=== PATIENT | female | born 1945 | race Caucasian/White ===

== ENCOUNTER → 2016-11-20 | Outpatient (CLI) | payer OTHER, MEDICAID | LOC: BMCIMAGING 12:06 | PROVIDERS: ATTEND Internal Medicine | DX: M51.34 Other intervertebral disc degeneration, thoracic region (principal); M50.323 Other cervical disc degeneration at C6-C7 level ==

== ENCOUNTER 2017-05-04 03:13 | Emergency (ER) | payer MEDICAID, OTHER ==
[2017-05-04 03:21] VITALS: BP 145/65; PULSE 78; RESP 18; TEMP 98.2; O2SAT 96
--- NOTE | 2017-05-04 03:42 | EDPHY ---
H & P Stated Complaint: made alvina,had chloride smell, ate at 1999, now dizzy/ bloat/nausea Time Seen by Provider: 05/04/17 03:30 HPI/ROS: Chief Complaint: Possible food poisoning HPI: 72-year-old woman made her on some worker out this week. She placed a CABG in [place] for 3 days. She opened this evening and thought it might have a small choroid smell but she did eat it. This is about 8 hours ago. About an hour to after eating she developed some nausea. Has not had any vomiting. Also had some mild lightheadedness. Symptoms are not worsening. She has not had any vomiting or diarrhea. No fevers or chills. Has had no abdominal pain. No numbness or weakness. She is worried that she may have contracted some sort of food poisoning in his here for evaluation. ROS: 10 point Review of Systems is negative except as noted in the HPI. PMH: Hypothyroidism Medications: Synthroid Allergies: No known drug allergies Social History: No smoking, no alcohol, no recreational drug use Family History: non-contributory Physical Exam: Gen: Awake, Alert, No Distress HEENT: Nose: no rhinorrhea Eyes: PERRLA, EOMI Mouth: Moist mucosa Neck: Supple, no JVD Chest: nontender, lungs clear to auscultation Heart: S1, S2 normal, no murmur Abd: Soft, non-tender, no guarding Back: no CVA tenderness, no midline tenderness Ext: no edema, non-tender Skin: no rash Neuro: CN II-XII intact, Sensation grossly intact, Strength 5/5 in bilateral upper and lower extremities - Personal History Current Tetanus/Diphtheria Vaccine: Unsure - Medical/Surgical History Hx Asthma: No Hx Chronic Respiratory Disease: No Hx Diabetes: No Hx Cardiac Disease: No Hx Renal Disease: No Hx Cirrhosis: No Hx Alcoholism: No Hx HIV/AIDS: No Hx Splenectomy or Spleen Trauma: No Other PMH: hypothyroid, hysterectomy - Social History Smoking Status: Never smoked Constitutional: Initial Vital Signs Temperature (C) 36.8 C 05/04/17 03:16 Heart Rate 78 05/04/17 03:16 Respiratory Rate 18 05/04/17 03:16 Blood Pressure 145/65 H 05/04/17 03:16 O2 Sat (%) 96 05/04/17 03:16 O2 Delivery Mode Room Air Allergies/Adverse Reactions: No Known Allergies Allergy (Unverified 05/04/17 03:15) Home Medications: Medication Instructions Recorded Herbals/Supplements -Info Only 1 ea PO DAILY 11/17/15 Naturethroid 81.25 mg PO DAILY 11/17/15 Medical Decision Making ED Course/Re-evaluation: 72-year-old presenting with some nausea and some dizziness after eating some abnormal smelling some workup that she made. She has a benign exam here. She has not had any vomiting or diarrhea. There is no numbness tingling or paresthesias. No other findings that are particularly concerning at this time. She has been given Zofran ODT is feeling improved. She has been reassured. She will follow up with primary care physician in 2-3 days for any concerns. If symptoms do worsen she will return to the emergency department for further evaluation. Departure - Departure Disposition: Home, Routine, Self-Care Clinical Impression: Nausea Condition: Good Instructions: Acute Nausea and Vomiting (ED) Additional Instructions: Return to the emergency depart for increasing nausea vomiting, abdominal pain, fevers, chills, numbness, weakness, or any other concerns. Follow up with primary care physician in 2-3 days if symptoms are not improving. Referrals: Abdullahi Castillo MD [Primary Care Provider] - As per Instructions
[2017-05-04] MEDS ORDERED: ONDANSETRON DISINTEGRATING 4 MG TAB PO ONE (03:47)
== END 2017-05-04 04:19 | disposition home or self-care (01) ==
DX: R11.0 Nausea (principal)

== ENCOUNTER → 2017-10-20 | Outpatient (CLI) | payer OTHER, MEDICAID | LOC: FIMAGING 13:53 | PROVIDERS: ATTEND Psychiatry & Neurology Neurology | DX: R41.3 Other amnesia (principal) ==

== ENCOUNTER → 2017-10-29 | Outpatient (CLI) | payer OTHER, MEDICAID | LOC: BMCIMAGING 13:00 | PROVIDERS: ATTEND Internal Medicine Rheumatology | DX: M25.551 Pain in right hip (principal) ==

== ENCOUNTER → 2017-11-23 | Outpatient (CLI) | payer OTHER, MEDICAID | LOC: BMCIMAGING 08:38 | PROVIDERS: ATTEND Physician Assistant | DX: M25.562 Pain in left knee (principal) ==

== ENCOUNTER → 2017-11-25 | Outpatient (CLI) | payer OTHER, MEDICAID | LOC: FIMAGING 15:19 | PROVIDERS: ATTEND Physician Assistant | DX: S83.242A Other tear of medial meniscus, current injury, left knee, initial encounter (principal); M25.462 Effusion, left knee; M94.29 Chondromalacia, multiple sites ==

== ENCOUNTER 2019-01-28 18:55 | Emergency (ER) | payer OTHER, MEDICAID ==
--- NOTE | 2019-01-28 19:39 | EDPHY ---
General Time Seen by Provider: 01/28/19 19:08 Narrative: CLINICAL IMPRESSION: Thyroglossal duct cyst ASSESSMENT/PLAN: 73-year-old female presents to the emergency department with atraumatic anterior throat pain and tightness over the last 2 days associated with allergic rhinitis. On exam, patient has no erythema, induration, swelling or clinical signs to suggest Prasanna's angina, epiglottitis, tracheitis, exudative tonsillitis, or branchial cleft cyst. CT neck confirms thyroglossal duct cyst. No obvious mass, base of tongue soft. Patient is tolerating secretions well, has no stridor or wheezing, respiratory distress or hypoxia. Given that patient has had increased pain she was started on antibiotics and referred to ENT for follow-up and possible surgical discussion. Warning signs return to ED sooner discussed in discharge papers. DIFFERENTIAL DX: Differential includes but not limited to Prasanna's angina, thyroglossal duct cyst, branchial cleft cyst, submental cellulitis, thyroiditis, pharyngitis, tracheitis, epiglottitis ED PROCEDURES: See lab and/or imaging results below ED COURSE: 8:50 p.m.: CT scan results discussed with Dr. Schultz, patient has a 20 mm thyroglossal duct cyst. No evidence of abscess. CHIEF COMPLAINT: Throat pain HPI: 73-year-old female with reported past medical history of chronic fatigue syndrome presents to the emergency department with several days of atraumatic anterior throat pain. Patient states this does not feel like a sore throat. She believes it is due to chronic allergic rhinitis and postnasal drip from allergies. She has had this in the past and it went away but states the pain today is lasting longer. She states it is affecting her ability to swallow and that it is painful to swallow but she is able to tolerate her secretions. She reports that her voice feels hoarse. She is not struggling to breathe. She has not noticed any obvious mass or swelling to the area. No recent dental work. No reported fever or chills. No trauma to the neck. She reports pain with flexing the neck forward. She has no pain inferior area over the thyroid, no shortness of breath or cough. She has never been told that she has a thyroglossal duct cyst or branchial cleft cyst. PAST MEDICAL HISTORY: Chronic fatigue syndrome See triage summary and nurse notes for addition applicable history Pertinent Past Surgical History: None reported Family History: Noncontributory Social History: Nonsmoker REVIEW OF SYSTEMS: A full 10 point review of systems was negative except for those mentioned in HPI. PHYSICAL EXAM: General Appearance: Alert, oriented, appropriate, cooperative, NAD, well hydrated, non-toxic appearing, tolerating secretions, hypertensive, I do not appreciate significant hoarseness to her voice, no hypoxia. HEENT: TMs are clear bilaterally no perforation or FB, no injection, no evidence of serous or mucopurulent otitis. Oropharynx clear is no erythema or exudates, no tonsillar hypertrophy or asymmetry. Dentition without abnormality. Floor of mouth soft without pain. No evidence of sialoadenitis. No obvious intraoral injury or ulceration. Base of tongue without palpable mass. No tenderness over the thyroid region. Neck: Supple, tender to palpation submental region extending to cricoid cartilage with no obvious induration fluctuance or cellulitis. No tenderness to palpation of the thyroid. No obvious anterior cervical lymphadenopathy. No palpable cyst or mass. no lymphadenopathy, no midline pain, FROM, no meningismus. Respiratory: There are no retractions, lungs are clear to auscultation. Cardiac: Regular rate and rhythm, no murmurs or gallops. Skin: Warm, dry, no rashes, no nodules on palpation. MEDICAL DECISION MAKING: Patient was seen independently. Secondary supervising physician at time of evaluation was: Dr. Schulz. Diagnosis: Thyroglossal duct cyst. New, requires workup Summary: See Assessment and Plan for summary of ED visit Clinical lab tests: ordered / reviewed. Independent visualization of images, tracing, or specimens: Yes. Discussed patient with another provider: Radiology Patient Progress: Stable for discharge. - Diagnostics Imaging Results: Imaging Impressions Neck CT 01/28/19 19:40 Impression: Thyroglossal duct cyst, measuring 10 x 10 x 20 mm, posterior to the hyoid cartilage and extending inferiorly to the level of the superior thyroid cartilage. Findings and recommendations discussed with Emergency Department Physician Business Solution Analyst, Walter Jacobson PA-C, at 2050 hours, on January 28, 2019. Final report concurs with initial preliminary interpretation. - History Smoking Status: Never smoked - Objective Vital Signs: Initial Vital Signs Temperature (C) 36.5 C 01/28/19 19:01 Heart Rate 72 01/28/19 19:01 Respiratory Rate 14 01/28/19 19:01 Blood Pressure 165/79 H 01/28/19 19:01 O2 Sat (%) 98 01/28/19 19:01 O2 Delivery Mode Room Air Allergies/Adverse Reactions: No Known Allergies Allergy (Unverified 05/04/17 03:15) Home Medications: Medication Instructions Recorded Herbals/Supplements -Info Only 1 ea PO DAILY 11/17/15 Naturethroid 81.25 mg PO DAILY 11/17/15 Amoxicillin/Clavulanate Pot 875 mg PO BID #20 tab 01/28/19 [Augmentin 875 mg tab] Laboratory Results: 01/28/19 19:50 POC Hgb 14.6 gm/dL gm/dL (12.6-16.3) POC Hct 43 % % (38-47) POC Sodium 143 mEq/L mEq/L (135-145) POC Potassium 3.6 mEq/L mEq/L (3.3-5.0) POC Chloride 110 mEq/L mEq/L (97-110) POC Total CO2 21 mEq/L L mEq/L (22-31) POC BUN 17 mg/dL mg/dL (7-23) POC Creatinine 0.8 mg/dL mg/dL (0.6-1.0) POC Glucose 91 mg/dL mg/dL (70-100) Medications Given: Discontinued Medications Amoxicillin/Clavulanate Potassium (Augmentin 875mg) 875 mg PO EDNOW ONE PRN Reason: Protocol Stop: 01/28/19 21:21 Last Admin: 01/28/19 21:28 Dose: 875 mg Point of Care Test Results: Chemistry 01/28/19 19:50 POC Sodium 143 mEq/L mEq/L (135-145) POC Potassium 3.6 mEq/L mEq/L (3.3-5.0) POC Chloride 110 mEq/L mEq/L (97-110) POC Total CO2 21 mEq/L L mEq/L (22-31) POC BUN 17 mg/dL mg/dL (7-23) POC Creatinine 0.8 mg/dL mg/dL (0.6-1.0) POC Glucose 91 mg/dL mg/dL (70-100) ISTAT H&H 01/28/19 19:50 POC Hgb 14.6 gm/dL gm/dL (12.6-16.3) POC Hct 43 % % (38-47) Departure - Departure Disposition: Home, Routine, Self-Care Clinical Impression: Thyroglossal duct cyst Condition: Good Instructions: Neck Pain (ED) Additional Instructions: DISCHARGE INSTRUCTIONS FROM YOUR DOCTOR Thank you for visiting our emergency department today. You were treated by a physician assistant news director today and your case was reviewed with our ED Attending physician. Please keep in mind that discharge from the emergency department does not mean that there is nothing wrong - it simply means that we have not identified an emergency condition that requires further evaluation or treatment in the hospital. You should always plan to follow up with primary care for re- evaluation of your condition in the next 2-3 days. If you have been referred to a specialist, please call as soon as possible (today or tomorrow) to schedule your follow up appointment at the appropriate time. YOU HAVE A THYROGLOSSAL DUCT CYST. AN ANTIBIOTIC WAS GIVEN FOR POSSIBLE ACUTE INFECTION. WE RECOMMEND FOLLOW-UP WITH EAR NOSE AND THROAT. THIS MAY NEED SURGICAL EXCISION AT SOME POINT IF IT STAYS INFLAMED. PLEASE MONITOR SYMPTOMS CLOSELY AT HOME. RETURN TO THE EMERGENCY DEPARTMENT IMMEDIATELY FOR INCREASED SWELLING, INCREASED PAIN, FEVER OR CHILLS, INABILITY TO SWALLOW YOUR OWN SALIVA , TROUBLE BREATHING, SIGNIFICANT NECK SWELLING, OR ANY OTHER CONCERNS. People present with illnesses and injuries in different ways, and it is always possible that we have missed something. You may always return for re-evaluation if symptoms worsen or if they are not improving or if you develop new/different symptoms. Again, thank you for choosing our emergency department. We hope that you feel better. Referrals: Abdullahi Castillo MD [Primary Care Provider] - As per Instructions Bharat Jacobson MD [Medical Doctor] - As per Instructions Prescriptions: Amoxicillin/Clavulanate Pot [Augmentin 875 mg tab] 875 mg PO BID #20 tab
[2019-01-28] MEDS ORDERED: IOPAMIDOL (ISOVUE-300) 100 ML BTL ONE (20:19)
[2019-01-28 20:55] VITALS: BP 125/64
[2019-01-28] MEDS ORDERED: AMOXICILLIN/CLAVULANATE POT 875/125 MG TAB PO ONE (21:20)
== END 2019-01-28 21:32 | disposition home or self-care (01) ==
DX: Q89.2 Congenital malformations of other endocrine glands (principal)
CPT/HCPCS: 70491; 99284; Q9967; 82435-PO; 82565-PO; 82947-PO; 84132-PO; 84295-PO; 84520-PO; 85014-ER